=== PATIENT | male | born 1945 | race Caucasian/White ===

== ENCOUNTER 2018-09-27 16:21 | Emergency (ER) | payer MEDICARE, OTHER ==
[~2018-09-27] VITALS: Ht 177.8 cm; Wt 81.7 kg
[~2018-09-27 16:21] MED LIST: FIBER500 MG; IMODIUM MULTI-1 EACH PO; LOSARTAN POTASS50 MG PO; LOVASTATIN20 MG PO; NEUTRA PHOS PO; OMEPRAZOLE20 MG PO; SYNTHROID75 MCG PO
[2018-09-27] MEDS ORDERED: RANITIDINE HCL75 MG PO (16:41)
[2018-09-27] MEDS ORDERED: NORCO 5-325 TA1 EACH PO (17:04)
== END 2018-09-27 18:18 | disposition home or self-care (01) ==
LOC: ED 16:21
PROC: 2W3DX1Z Immobilization of Left Lower Arm using Splint (ICD-10-PCS; principal; 2018-09-27)
DX: S52.572A Other intraarticular fracture of lower end of left radius, initial encounter for closed fracture (principal); I10 Essential (primary) hypertension; Z88.1 Allergy status to other antibiotic agents; Z88.8 Allergy status to other drugs, medicaments and biological substances; Z91.018 Allergy to other foods; Z79.899 Other long term (current) drug therapy; W18.30XA Fall on same level, unspecified, initial encounter
CPT/HCPCS: 29125; 73110; 99283-25

== ENCOUNTER 2019-03-05 19:47 | Emergency (ER) | payer MEDICARE, OTHER ==
[~2019-03-05] VITALS: Ht 177.8 cm; Wt 81.7 kg
[~2019-03-05 19:47] MED LIST changes: +NORCO 5-325 TA1 EACH PO; +RANITIDINE HCL75 MG PO
[2019-03-05] MEDS ORDERED: AUGMENTIN 875-1 EACH PO (21:52)
== END 2019-03-05 22:06 | disposition home or self-care (01) ==
LOC: ED 19:47
DX: S81.851A Open bite, right lower leg, initial encounter (principal); I10 Essential (primary) hypertension; Z90.49 Acquired absence of other specified parts of digestive tract; Z88.1 Allergy status to other antibiotic agents; Z88.8 Allergy status to other drugs, medicaments and biological substances; Z91.018 Allergy to other foods; W54.0XXA Bitten by dog, initial encounter
CPT/HCPCS: 90471; 90714; 99282-25

== ENCOUNTER 2020-04-30 08:22 | Day surgery (SDC) | payer OTHER ==
[~2020-04-30] VITALS: Ht 177.8 cm; Wt 81.7 kg
[~2020-04-30 08:22] MED LIST changes: +AUGMENTIN 875-1 EACH PO; +FAMOTIDINE40 MG PO; +FLOMAX0.4 MG PO
--- NOTE | 2020-04-30 10:43 | NUR ---
04/30/20 Angelina3 Melani Zapata 1038 PATIENT ARRIVES TO PACU SLEEPING. OPENS EYES WITH VERBAL STIMULI, THEN BACK TO SLEEP. RESP EVEN AND UNLABORED, NC AT 2 LITERS.
--- NOTE | 2020-05-01 06:31 | OR ---
[facility] [address], [place] [address] Signed DATE OF OPERATION: 04/30/2020 SURGEON: Nam Rojas MD PREOPERATIVE DIAGNOSIS: Hyperplastic rectal polyps in 2008. POSTOPERATIVE DIAGNOSES: 1. 3 mm rectal polyps at 6 cm x3. 2. Minimal sigmoid diverticulosis. 3. Minimal internal hemorrhoids. PROCEDURE: Colonoscopy with hot biopsy. ESTIMATED BLOOD LOSS: None. INDICATIONS: Marcio is a 75-year-old gentleman, asked to see me for a followup colonoscopy. He had a negative colonoscopy in [address] Rajesh Rahman. He also had a colonoscopy in 2008 at age 64. He had 4 tiny hyperplastic polyps removed out of his rectum. He currently has no lower GI complaints. There is no family history of colon cancer or polyps. I gave Marcio a pamphlet in the office on colonoscopy. We looked at that together along with the risks including, but not limited to gas bloating, crampy abdominal pain, bleeding, perforation requiring surgery, and missed diagnosis. We also discussed the need for the IV sedation. He had expressed understanding and wished to proceed. PROCEDURE NOTE: Marcio was taken into our endoscopy suite and placed in the left lateral decubitus position. He was given IV sedation with 5 mg of Versed and 125 mcg of fentanyl. A digital rectal exam was performed and this was unremarkable. The adult colonoscope was introduced and advanced all around into the cecum under direct visualization of the camera without difficulty. He had an excellent bowel prep. We could easily see the appendiceal orifice and the ileocecal valve. Scope had been slowly withdrawn. He did have just a few tiny diverticula in his distal sigmoid colon. In the rectum, we could see his previous scars from his polypectomies. In that same area, but around 6 cm, he had several tiny hyperplastic polyps. There were easily removed with hot biopsy forceps. Upon retroflexion of scope, he does have very minimal internal hemorrhoid Electronically Signed By: NAM ROJAS MD 05/01/20 0631 PATIENT NAME: MARCIO AGUIRRE OPERATIVE REPORT DATE OF : 49 REPORT #: [id number] PHYSICIAN: NAM ROJAS MD PCP: AUDREY ANDRADE MD REPORT IS CONFIDENTIAL AND NOT TO BE RELEASED WITHOUT AUTHORIZATION [facility] [address] [place] [id number] Signed tissue. After this, the gas was suctioned out. The colonoscope removed. Marcio tolerated the procedure quite well. RECOMMENDATIONS: I will see Marcio back in my office in the next 7 to 14 days to review his results. Nam Rojas MD ALB/SALL /[id number] cc: Chart Filed Incomplete MD Audrey Mckay MD Copies: CHART FILED INCOMPLETE NAM ROJAS MD ~ Electronically Signed By: NAM ROJAS MD 05/01/20 0631 PATIENT NAME: MARCIO AGUIRRE OPERATIVE REPORT DATE OF : 49 REPORT #: [id number] PHYSICIAN: NAM ROJAS MD PCP: AUDREY ANDRADE MD REPORT IS CONFIDENTIAL AND NOT TO BE RELEASED WITHOUT AUTHORIZATION
--- NOTE | 2020-05-01 16:26 | PATH ---
[facility] [address], [place] [address] Signed SPECIMEN(S): A RECTAL POLYP AT 6 CM SPECIMEN SOURCE: A. RECTAL POLYP AT 6 CM CLINICAL HISTORY: Follow up colonoscopy for history of polyps. Postop: Rectal polyps, diverticulosis. MICROSCOPIC DESCRIPTION: Histologic sections of all submitted blocks are examined by light microscopy. These findings, together with the gross examination, support the pathologic diagnosis. FINAL PATHOLOGIC DIAGNOSIS: Rectum, polyp at 6 cm, polypectomy: - Hyperplastic polyp. - Negative for dysplasia or malignancy. NAL:cml:C2NR GROSS DESCRIPTION: The specimen, labeled "DB, rectal polyp at 6 cm," is received in formalin and consists of two salazar soft tissue fragments that measure 0.2 cm in greatest dimension. The specimen is entirely submitted in cassette (A1). JS (under the direct supervision of a pathologist) The Gross Description was prepared using a voice recognition system. The report was reviewed for accuracy; however, sound-alike word errors, addition and/or deletions may occur. If there is any question about this report, please contact Client Services. PERFORMING LABORATORY: The technical component was performed by [facility], [address] [place] [id number] (Clinical Research Director: Nikky Prakash MD; CLIA# [id number]). [facility] [address] [address] (CLIA# [id number]). Diagnostician: Jaci Augustin MD Pathologist Electronically Signed 05/01/2020 PATIENT NAME: SEYMOUR AGUIRRE PATHOLOGY DATE OF : 49 REPORT #: [id number] PHYSICIAN: [facility] PCP: ANGELA ANDRADE MD REPORT IS CONFIDENTIAL AND NOT TO BE RELEASED WITHOUT AUTHORIZATION [address] [address] Signed Copies: ~ PATIENT NAME: SEYMOUR AGUIRRE PATHOLOGY DATE OF : 49 REPORT #: [id number] PHYSICIAN: [facility] PCP: ANGELA ANDRADE MD REPORT IS CONFIDENTIAL AND NOT TO BE RELEASED WITHOUT AUTHORIZATION
== END 2020-04-30 11:10 | disposition home or self-care (01) ==
LOC: DS 08:22 → OPS 08:22 → DS 10:30 → OPS 10:30
PROVIDERS: Colon & Rectal Surgery
PROC: 0DBP8ZZ Excision of Rectum, Via Natural or Artificial Opening Endoscopic (ICD-10-PCS; principal; 2020-04-30 10:30)
DX: K62.1 Rectal polyp (principal); K64.8 Other hemorrhoids; K57.30 Diverticulosis of large intestine without perforation or abscess without bleeding; I10 Essential (primary) hypertension; E03.9 Hypothyroidism, unspecified; Z79.899 Other long term (current) drug therapy; Z88.1 Allergy status to other antibiotic agents; Z88.8 Allergy status to other drugs, medicaments and biological substances; Z86.010 Personal history of colon polyps
CPT/HCPCS: 99153; G0500; J2250; J3010; J7121